=== PATIENT | male | born 2000 | race Caucasian/White ===

== ENCOUNTER 2018-05-22 14:19 | Emergency (ER) | payer OTHER ==
[~2018-05-22] VITALS: Ht 160 cm; Wt 65.0 kg
[2018-05-22 14:21] VITALS: Ht 160 cm; Wt 65.0 kg
[2018-05-22] MEDS ORDERED: AMOX1TAB10 PO (14:33)
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
[2018-05-22] MEDS ORDERED: DIPHTH/TET/ACEL PERTUSS (ADULT) 0.5 ML VIAL IM* ONE (15:00)
[2018-05-22] MEDS ORDERED: AMOXICILLIN/CLAV 875 MG TAB PO ONE (15:00)
[2018-05-22] MEDS ORDERED: ACETAMINOPHEN 325 MG TAB PO ONE (15:00)
== END 2018-05-22 15:45 ==
LOC: FTE 14:19
DX: S61.252A Open bite of right middle finger without damage to nail, initial encounter (principal); S50.812A Abrasion of left forearm, initial encounter; W50.3XXA Accidental bite by another person, initial encounter; Y92.9 Unspecified place or not applicable
CPT/HCPCS: 90471; 90715